=== PATIENT | male | born 1955 | race Caucasian/White ===

== ENCOUNTER → 2018-09-25 08:06 | Outpatient (CLI) | payer OTHER ==
--- NOTE | 2018-09-28 02:13 | EC ---
PATIENT:RAYMUNDO CRABTREE DATE OF SERVICE: 09/25/18 SEX: M MEDICAL RECORD: [id number] DATE OF : 53 [facility] AGE OF PATIENT: 63 ADMISSION DATE: 09/25/18 REFERRING PHYSICIAN: INTERPRETING PHYSICIAN: DEION ALLEN MD ECHOCARDIOGRAM REPORT ECHO CHARGES 4 ECHO COMPLETE Date: 09/25/18 CLINICAL DIAGNOSIS: AVR ECHOCARDIOGRAPHIC MEASUREMENTS (adult normal given) AC root (d.<3.7cm) 3.6 cm LV Septum d (<1.2 cm> 1.4 cm Valve Excursion 1.6 cm LV Septum (systole) 1.7 cm Left Atria (s.<4.0cm> 4.9 cm LVPW d(<1.2cm) 1.4 cm RV (d.<2.3cm) 4.4 cm LVPW (sytole) 1.8 cm LV diastole(<5.6CM) 6.3 cm MV E-F(>70mm/sec) cm LV systole 3.1 cm LVOT Diameter 1.6 cm MV exc.(>10mm) 1.8 cm Est.ejection fraction (50-75%) % DOPPLER: LVIT cm/sec A 63.0 cm/sec E 118 cm/sec LA cm/sec RVSP 55 mmHg LVOT 194 cm/sec AOP1/2T m/s Asc. Ao 252 cm/sec RVOT 75 cm/sec RA cm/sec PA 101 cm/sec AV Gradient Peak 25.43mmHg AV Mean 13.34mmHg AV Area 1.5 cm MV Gradient Peak 5.60 mmHg MV Mean 1.98 mmHg MV Area cm COMMENTS: Linux Programmer: Edita BLOOD Osteopathic Physician: 3 Dr. Corona TAPE# PACS Pericardial Effusion N DATE OF SERVICE: 09/25/2018 Adequate 2-D, color-flow and spectral Doppler, and M-mode. LVH is present. LV internal dimensions are normal. Wall motion is normal. EF is 55%. Mechanical prosthetic aortic valve is noted with acceptable Doppler velocity. Left atrium is normal. Mitral valve shows no prolapse. Trace MR. Right-sided chambers are grossly normal. Trace TR. TRANSINT:[id number] Voice Confirmation ID: [id number] DOCUMENT ID: [id number] ECHOCARDIOGRAM REPORT [id number] RAYMUNDO CRABTREE DEION ALLEN MD at 0213 CC: [id number] DICTATION DATE: 09/27/18 1334 PUBLIC SAFETY OFFICER: 09/27/18 1523 DEP CLI 09/25/18 [place] [id number] [place] [address]
== END | disposition home or self-care (01) ==
LOC: D.HCCARDIO 08:06
PROVIDERS: ATTEND Internal Medicine Interventional Cardiology
DX: Z95.4 Presence of other heart-valve replacement (principal)

== ENCOUNTER → 2019-10-11 09:15 | Outpatient (CLI) | payer OTHER ==
--- NOTE | ~2019-10-11 | EC ---
PATIENT:RAYMUNDO CRABTREE DATE OF SERVICE: 10/11/19 SEX: M MEDICAL RECORD: [id number] DATE OF : [birth year] [facility] AGE OF PATIENT: 64 ADMISSION DATE: 10/11/19 REFERRING PHYSICIAN: INTERPRETING PHYSICIAN: DEION ALLEN MD ECHOCARDIOGRAM REPORT ECHO CHARGES 4 ECHO COMPLETE Date: 10/11/19 CLINICAL DIAGNOSIS: HTN/HX OF AVR TRACE MR/TR ECHOCARDIOGRAPHIC MEASUREMENTS (adult normal given) AC root (d.<3.7cm) 3.5 cm LV Septum d (<1.2 cm> 1.2 cm Valve Excursion 1.4 cm LV Septum (systole) 1.5 cm Left Atria (s.<4.0cm> 4.8 cm LVPW d(<1.2cm) 1.3 cm RV (d.<2.3cm) 4.3 cm LVPW (sytole) 1.7 cm LV diastole(<5.6CM) 5.9 cm MV E-F(>70mm/sec) cm LV systole 3.9 cm LVOT Diameter 1.9 cm MV exc.(>10mm) 2.1 cm Est.ejection fraction (50-75%) % DOPPLER: LVIT cm/sec A 56.0 cm/sec E 103.0 cm/sec LA cm/sec RVSP 30 mmHg LVOT 100 cm/sec AOP1/2T m/s Asc. Ao 236 cm/sec RVOT 72 cm/sec RA cm/sec PA 103 cm/sec AV Gradient Peak 22.22mmHg AV Mean 12.68mmHg AV Area 33 cm MV Gradient Peak 5.88 mmHg MV Mean 2.13 mmHg MV Area cm COMMENTS: Pier Master Assistant: 2 VIJAY BLOOD Gear Setter: 3 Dr. Corona TAPE# PACS Pericardial Effusion N DATE OF SERVICE: Adequate 2D, color flow imaging, spectral Doppler, and M-Mode Borderline LVH. LV internal dimension is normal. Wall motion is normal. EF greater than or equal to 55%. Aortic valve has mechanical prosthesis with acceptable Doppler velocity and trivial AI. Left atrium is dilated at 4.8 cm. Mitral valve shows no prolapse. Mild MR. Right-sided chambers are grossly normal. Trace TR. ECHOCARDIOGRAM REPORT [id number] RAYMUNDO CRABTREE TRANSINT:[id number] Voice Confirmation ID: [id number] DOCUMENT ID: [id number] DEION ALLEN MD CC: [id number] DICTATION DATE: 10/13/19 1332 ULTRASONOGRAPHER: 10/13/19 1504 DEP CLI 10/11/19 [place] [id number]
== END | disposition home or self-care (01) ==
LOC: D.HCCECHO 09:00
PROVIDERS: ATTEND Internal Medicine Interventional Cardiology
DX: I10 Essential (primary) hypertension (principal)

== ENCOUNTER → 2020-10-18 07:55 | Outpatient (CLI) | payer OTHER ==
--- NOTE | ~2020-10-18 | EC ---
PATIENT:RAYMUNDO CRABTREE DATE OF SERVICE: 10/18/20 SEX: M MEDICAL RECORD: [id number] DATE OF : 53 [facility] AGE OF PATIENT: 65 ADMISSION DATE: 10/18/20 REFERRING PHYSICIAN: INTERPRETING PHYSICIAN: DEION ALLEN MD ECHOCARDIOGRAM REPORT ECHO CHARGES 4 ECHO COMPLETE Date: 10/18/20 CLINICAL DIAGNOSIS: AORTIC VALVE REPLACEMENT ASSESS EF/AVR/ AND VALVES ECHOCARDIOGRAPHIC MEASUREMENTS (adult normal given) AC root (d.<3.7cm) 3.4 cm LV Septum d (<1.2 cm> 1.1 cm Valve Excursion 1.7 cm LV Septum (systole) 1.6 cm Left Atria (s.<4.0cm> 4.3 cm LVPW d(<1.2cm) 1.3 cm RV (d.<2.3cm) 4.6 cm LVPW (sytole) 1.6 cm LV diastole(<5.6CM) 5.7 cm MV E-F(>70mm/sec) cm LV systole 3.9 cm LVOT Diameter 1.8 cm MV exc.(>10mm) 1.9 cm Est.ejection fraction (50-75%) % DOPPLER: LVIT cm/sec A 32.0 cm/sec E 113.0 cm/sec LA cm/sec RVSP 52 mmHg LVOT 178 cm/sec AOP1/2T m/s Asc. Ao 225 cm/sec RVOT 79 cm/sec RA cm/sec PA 108 cm/sec AV Gradient Peak 20.16mmHg AV Mean 9.31 mmHg AV Area 2.0 cm MV Gradient Peak 9.00 mmHg MV Mean 2.64 mmHg MV Area cm COMMENTS: Printed Circuit Board Pcb Designer: 2 VJIAY BLOOD Table Worker Packager: 3 Dr. Corona TAPE# PACS Pericardial Effusion N DATE OF SERVICE: Adequate 2D, color flow imaging, spectral Doppler, and M-Mode. FINDINGS: Borderline LVH. LV internal dimension is normal. Wall motion is normal. EF greater than or equal to 55%. Mechanical prosthetic aortic valve is noted with acceptable Doppler velocity and no significant AI. Left atrium is mildly dilated at 4.3 cm. Mitral valve shows no prolapse. Mild MR. Right-sided chambers are grossly normal. Mild TR. ECHOCARDIOGRAM REPORT [id number] RAYMUNDO CRABTREE TRANSINT:[id number] Voice Confirmation ID: [id number] DOCUMENT ID: [id number] DEION ALLEN MD CC: [id number] DICTATION DATE: 10/18/20 1634 STRUCTURAL STEEL WORKER APPRENTICE: 10/19/20 0008 DEP CLI 10/18/20 [place] [id number] [place] [id number]
== END | disposition home or self-care (01) ==
LOC: D.HCCECHO 07:55
PROVIDERS: ATTEND Internal Medicine Interventional Cardiology
DX: Z95.4 Presence of other heart-valve replacement (principal)